=== PATIENT | female | born 1990 | race Hispanic/Latino ===

== ENCOUNTER 2016-09-03 12:54 | Emergency (ER) | payer SELFPAY ==
[~2016-09-03] VITALS: Ht 162.6 cm; Wt 49.8 kg
[2016-09-03 13:31] LABS: HEMATOCRIT 40.7 % (36.0-46.0); MCH 29.6 PG (29.0-34.0); MCHC 33.4 G/DL (30.0-36.0); MCV 88.7 FL (83-99); MEAN PLAT.VOLUME 11.1 uM^3 (9.5-12.4); PLATELET COUNT 195 K/uL (156-360); RBC DIS.WIDTH-CV 13.2 % (11.8-14.6); RBC DIS.WIDTH-SD 42.7 % (39-53); RED BLOOD COUNT 4.59 M/uL (3.80-5.20); WHITE BLOOD COUNT 6.3 K/uL (4.1-10.2)
[2016-09-03 13:43] LABS: CHLORIDE 103 mEq/L (99-109); POTASSIUM 4.3 mEq/L (3.7-5.4); SODIUM 138 mEq/L (136-147)
[2016-09-03 13:45] LABS: GLUCOSE 84 mg/dL (70-99)
[2016-09-03 13:46] LABS: ANION GAP 10 MEQ/L (2-14)
[2016-09-03 13:47] LABS: TOTAL BILIRUBIN 0.7 mg/dL (0.0-1.0)
[2016-09-03 13:48] LABS: ALKALINE PHOSPHATASE 79 IU/L (3-129)
[2016-09-03 13:50] LABS: UREA NITROGEN (BUN) 12 mg/dL (9-23)
[2016-09-03 13:52] LABS: BILIRUBIN NEGATIVE; BLOOD NEGATIVE; COLOR YELLOW ((YELLOW)); GLUCOSE (STRIP) NEGATIVE; KETONES 20; LEUKOCYTES NEGATIVE; NITRITE NEGATIVE; PROTEIN (STRIP) NEGATIVE; SPECIFIC GRAVITY 1.026 (1.000-1.030); UROBILINOGEN 0.2 MG/DL (0.2-1.0)
[2016-09-03 13:53] LABS: ADD MIUA? NO; UCUL ADDED? NO
[2016-09-03 13:55] LABS: GFR ESTIMATE (CALCULATED) > 59 mL/min/
[2016-09-03 13:58] LABS: QUANTITATIVE HCG < 4.0 MIU/ML
[2016-09-03] MEDS ORDERED: COLACE100 MG PO (14:53)
[2016-09-03] MEDS ORDERED: BENTYL20 MG PO (14:53)
[2016-09-03 15:17] VITALS: BP 113/79
== END 2016-09-03 15:21 | disposition home or self-care (01) ==
LOC: EME 12:54
DX: R10.32 Left lower quadrant pain (principal); K59.00 Constipation, unspecified; M54.5 Low back pain; R30.0 Dysuria; N89.8 Other specified noninflammatory disorders of vagina
CPT/HCPCS: 74020; 80053; 81003; 84702; 85027; 99281; 99284